=== PATIENT | female | born 1935 | race Caucasian/White ===

== ENCOUNTER 2020-02-12 07:47 | Outpatient (CLI) | payer MEDICARE, MEDICAID, SELFPAY ==
--- NOTE | 2020-02-12 08:01 | US_ITS ---
WS: [id number] Bilateral renal ultrasound, 02/12/2020 Clinical Data: GROSS HEMATURIA Comparison: None. Findings: The right kidney measures 10.0 cm x 4.5 cm x 4.2 cm and the left kidney is 9.9 cm x 4.9 cm x 5.6 cm. There are no cysts, masses or hydronephrosis. The renal cortical margin is normal. No renal calculi a re seen. The abdominal aorta and inferior vena cava show no vascular abnormalities. The bladder was scanned and showed a mass within the bladder adherent to the gallbladder wall. It teri sures 3.13 x 3.58 x 4.28 cm. This could represent an organized hematoma, mass from the bladder wall w hich could be a tumor or organized debris. US/US renal BI with bladder Impression: 1. Probable intraluminal bladder mass and recommend further workup. 2. Negative kidneys.
== END 2020-02-12 07:48 | disposition home or self-care (01) ==
PROVIDERS: PCP Registered Nurse; Visit Provider Registered Nurse
DX: R31.0 Gross hematuria (principal)
CPT/HCPCS: 76770; 76857

== ENCOUNTER 2020-02-17 08:59 | Observation (INO) | payer MEDICARE, MEDICAID, SELFPAY ==
[2020-02-17] VITALS (11 sets, daily range): BP systolic 103–125; BP diastolic 50–68; PULSE 74–98; RESP 16–22; TEMP 36.3–37.1; O2SAT 90–98; BMI 25.4
--- NOTE | 2020-02-17 11:09 | CT_ITS ---
WS: [id number] CT ABDOMEN AND PELVIS WITH CONTRAST HISTORY: GI bleed TECHNIQUE: Imaging performed of the abdomen and pelvis with IV contrast. Single phase imaging of the abdomen. Coronal and sagittal reformats are submitted. All CT scans at [facility] use at least one of these dose optimization techniques: automated exposure control; mA and/or kV adjustment per patient size (includes targeted exams where dose is matched to clinical indication); or iterativ e reconstruction. IV CONTRAST: Visipaque 320; 95 mL IV. Oral contrast: No DLP: 730.05 mGy.cm COMPARISON: 12/01/2006 Lower thorax: Dependent changes and mild atelectasis at the lung bases. Benign granuloma LEFT lower l obe. Heart is normal size. Small hiatal hernia. Liver/biliary system: Normal size with no intrahepatic dilatation. Gallbladder: Very mildly distended gallbladder. Small amount of sludge or stones are layering depende ntly. No adjacent pericholecystic fluid or gallbladder wall thickening. Common bile duct is minimally dilated to 9 mm. Pancreas: Mild diffuse atrophy of the pancreas. Spleen: Normal size spleen. There are several scattered hypodensities within the spleen which are non specific. Adrenal glands: Normal. Right kidney: Mild atrophy. No mass or hydronephrosis. Left kidney: Mild atrophy. No mass or hydronephrosis. Aorta: Moderate atherosclerosis with no aneurysm. Lymphadenopathy: None. Free fluid: None. GI tract: Normal appendix. No GI tract obstruction. There is mild constipation. There are a few scatt ered diverticula. Abdominal wall: Unremarkable abdominal wall. No hernia. Pelvis: Well-distended urinary bladder. There is soft tissue lobulated enhancing mass in the posterio r RIGHT urinary bladder. Lobulated mass measures 7 cm transversely by 3.1 cm anterior posterior. This mass is predominantly to the RIGHT of midline and closely associated with the ureteral orifice but n o obstruction. Small anteverted uterus. There is increased density within the uterus which could be c alcification. This is a poor evaluation for the endometrium. 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 Severe RIGHT hip join t osteoarthritis. Flattening of the normal head of the RIGHT hip with subchondral cystic changes and edema. CT/CT abdomen pelvis w con* [id number] IMPRESSION: 1. Lobulated intraluminal bladder mass measures 7.0 x 3.1 cm. Recommend cystos copy. Transitional neoplasm suspected. 2. No renal mass or obstruction. 3. Atrophic uterus. Poor visualization of the endometrium. 4. Suspect small small stones in the gallbladder. No evidence for acute cholec ystitis.
--- NOTE | 2020-02-17 11:28 | ED_ITS ---
HPI - Female Genitourinary General: Chief complaint: Vaginal Bleeding Stated complaint: VAGINAL BLEED, FALL Time Seen by Provider: 02/17/20 10:46 History of Present Illness: HPI Narrative: 5-year-old female patient with dementia presents to the emergency department with her son. She lives at home with her son, she sustained a fall last night while getting off the commode, her son denied injuries but is wanting her checked out. He reports concern as she has experienced vaginal bleeding. History of godfrey hematuria x2 weeks. Reports blood is with urination, blood is present in pad when she experiences urinary incontinence. He denies blood in stool Recent renal ultrasound revealed left renal mass. CAT scan has been ordered by her primary care physician and appointment is pending. Her son reports that she is experienced increased weakness and is not able to walk or stand very well. He reports patient did not experience head injury or loss of consciousness. She has dementia and does not follow commands. MD elicited complaint: vaginal bleeding, urinary incontinence and other (bleeding with urination) Onset (ago): week(s) (2) Location of symptoms: urethra and vaginal Consistency: progressively worsening Vaginal bleeding: moderate Urinary symptoms: Difficulty Urinating and Hematuria Associated symptoms: Reports abdominal pain and weakness; Deny headache(s) or nausea Review of Systems General: Reports: 10 or more systems reviewed and unremarkable except in HPI and below Const: Reports: fatigue and malaise; Denies: fever(s), chills or diaphoresis Eyes: Denies: blurry vision or eye redness ENMT: Denies: throat pain, dental pain or disequilibrium Card: Denies: chest pain, palpitations or irregular heart rhythm Resp: Denies: dyspnea, productive cough, non-productive cough or wheezing GI: Reports: abdominal pain; Denies: nausea, vomiting or hematemesis : Reports: dribbling, urinary incontinence, hematuria and vaginal bleeding; Denies: difficulty voiding or dysuria Musc: Denies: back pain Skin/Breast: Denies: rash or pruritus Neuro: Reports: difficulty walking, frequent falls and confusion (dementia); Denies: headache(s), weakness in extremities or behavioral changes Psych: Reports: irritability (with dementia) Phill/Lymph: Denies: easy bruising COUNTS INCLUDE 234 BEDS AT THE [facility] ED PFSH: Medical History (Updated 02/17/20 @ 16:50 by Gordon Gallego MD) Dementia Gross hematuria Mass of bladder Social History (Updated 02/17/20 @ 16:51 by Gordon Gallego MD) Smoking and tobacco status: never smoked Alcohol intake: never Household members: children Housing: House Physical Exam Const: COMMON NORMALS: no acute distress, patient oriented x3, healthy appearing and alert GENERAL APPEARANCE: cooperative, comfortable and well hy drated ORIENTATION/CONSCIOUSNESS: Yes awake HENMT: COMMON NORMALS: normocephalic, Normal external nose present and moist oral mucous membranes HEAD & SCALP: normocephalic NOSE: Normal external nose present Eye: COMMON NORMALS: Equal, round and reactive pupils present and EOMs intact bilaterally GENERAL EYE: appearance normal, both eyes and all related struct ures PUPIL: Yes Equal, round and reactive pupils present Neck/C-Spine: COMMON NORMALS: full ROM and no lymphadenopathy GENERAL: Yes normal visual inspection and Yes trachea midline CERVICAL SPINE: Yes cervical ROM normal Lymph: LYMPHATIC: no lymphadenopathy noted Chest: COMMONS NORMALS: normal inspection of the chest Resp: COMMON NORMALS: normal respiratory effort and clear to auscultation bilaterally EFFORT & INSPECTION: Yes able to speak in complete sentences AUSCULTATION: clear to auscultation bilaterally Cardio: COMMON NORMALS: regular rhythm, S1 normal heart sound present, S2 normal heart sound present and Peripheral pulses 2+ throughout RHYTHM: regular rhythm HEART SOUNDS: S1 normal heart sound present and S2 normal heart sound present PERIPHERAL PULSES: Peripheral pulses 2+ throughout GI: COMMON NORMALS: Soft to palpation INSPECTION: Yes normal to inspection AUSCULTATION: Yes normoactive bowel sounds PALPATION: Yes Soft to palpation, Yes Tenderness to palpation present (GI) Details: RLQ and RUQ and Yes Other GI palpation findings present (distended) RECTAL EXAM: heme positive stool : COMMON NORMALS: Yes no CVA tenderness BLADDER/KIDNEY EXAM: Yes no CVA tenderness SPECULUM EXAM - VAGINA: Yes other (Patient noncompliant with pelvic exam, vaginal digitally palpated, no active bleeding appreciated) Back/Pelvis: COMMON NORMALS: no CVA tenderness and thoracic and lumbar spine normal to inspection Extremity: COMMON NORMALS: normal to inspection, full ROM (To all extremities, negative pain to palpation of the extremities, cervical spine, thoracic spine or lumbar spine.) and capillary refill normal GENERAL: Yes normal exam except as noted Neuro: COMMON NORMALS: patient oriented x3 and no focal motor deficits SENSORIUM/ORIENTATION: Yes alert Psych: COMMON NORMALS: mental status grossly normal and speech normal APPEARANCE: Yes grossly normal ATTITUDE: Yes calm ACTIVITY/MOTOR BEHAVIOR: Yes appropriate eye contact and Yes fidgeting SPEECH: Yes normal speech THOUGHT PROCESS: disorganized MEMORY/COGNITION: Yes memory grossly impaired Skin: COMMON NORMALS: no rashes or lesions noted and turgor normal NARRATIVE SKIN EXAM: Negative ecchymosis, negative old bruising noted, skin exam completed due to history of fall, assessing for injury GENERAL SKIN EXAM: no rashes or lesions noted and turgor normal Course ED course: 85-year-old female patient presents to the emergency department with continued falls at home, increased weakness according to the son. Recent ultrasound bladder revealed bladder mass, normal kidneys, transfer of care to Dr. Silver as patient will most likely require admission. Vital Signs: Vital signs: Vital Signs Temperature 97.9 F 02/17/20 17:51 Pulse Rate 90 02/17/20 17:51 Respiratory Rate 18 02/17/20 17:51 Blood Pressure 106/68 02/17/20 17:51 Pulse Oximetry 94 02/17/20 18:15 MDM - Female Lab Data: Labs: Lab Results 02/17/20 02/17/20 02/17/20 Range/Units 11:03 11:45 11:45 WBC 7.9 (4.0-10.0) 10^3/ uL RBC 2.66 L (4.1-5.3) 10^6/u L Hgb 8.3 L (11.5-15.3) g/dL Hct 27.2 L (37.0-47.0) % MCV 102.3 H (81-99) fL MCH 31.2 (28.0-34.0) pg MCHC 30.5 (30.0-36.0) g/dL RDW 13.2 (12.1-15.1) % Plt Count 248 (130-400) 10^3/c mm MPV 9.2 (7.4-10.4) fL Neut % (Auto) 57.9 % Lymph % (Auto) 24.2 % [place] % (Auto) 15.4 % Eos % (Auto) 1.4 % Baso % (Auto) 0.6 % Neut # (Auto) 4.57 (1.8-7.7) 10^3/u L Lymph # (Auto) 1.9 (0.8-4.8) 10^3/u L [place] # (Auto) 1.2 H (0.2-0.9) 10^3/u L Eos # (Auto) 0.1 (0.0-0.8) 10^3/u L Baso # (Auto) 0.1 (0.0-0.1) 10^3/u L Nucleated RBC % (a uto) 0 % Nucleated RBCs # 0.0 /100WBC Sodium (136-145) mmol/L Potassium (3.5-5.1) mmol/L Chloride (98-107) mmol/L Carbon Dioxide (22-29) mmol/L Anion Gap (5-19) BUN (8-23) mg/dL Creatinine (0.5-0.9) mg/dL GFR Calculation Glucose (65-115) mg/dL Calculated Osmolal ity (285-295) mOsm/k g Lactate 0.9 (0.5-2.2) mmol/L Calcium (8.5-10.5) mg/dL Total Bilirubin (0.15-1.2) mg/dL AST (0-32) U/L ALT (0-33) U/L Alkaline Phosphata se (35-105) IU/L Total Protein (6.6-8.7) g/dL Albumin (3.5-5.2) g/dL Globulin (1.3-4.6) g/dL Urine Color Red (Yellow) Urine Appearance Turbid (CLEAR) Urine pH 7 (5-7) Ur Specific Gravit y 1.015 (1.005-1.030) Urine Protein 3+ H (Negative) Urine Glucose (UA) Norm (Normal) Urine Ketones Negative (Negative) Urine Blood 3+ H (Negative) Urine Nitrate Negative (Negative) Urine Bilirubin Neg (Negative) Urine Urobilinogen 1 H (Negative) mg/dL Ur Leukocyte Bre ase Negative (Negative) Urine RBC Too numerous to c nt H (0-2) /hpf Urine WBC None (0-5) /hpf Ur Squamous Epith Cells None (0-5) /hpf Amorphous Sediment Not Reportable Urine Bacteria 3+ H (NONE) /hpf 02/17/20 Range/Units 12:28 WBC (4.0-10.0) 10^3/ uL RBC (4.1-5.3) 10^6/u L Hgb (11.5-15.3) g/dL Hct (37.0-47.0) % MCV (81-99) fL MCH (28.0-34.0) pg MCHC (30.0-36.0) g/dL RDW (12.1-15.1) % Plt Count (130-400) 10^3/c mm MPV (7.4-10.4) fL Neut % (Auto) % Lymph % (Auto) % [place] % (Auto) % Eos % (Auto) % Baso % (Auto) % Neut # (Auto) (1.8-7.7) 10^3/u L Lymph # (Auto) (0.8-4.8) 10^3/u L [place] # (Auto) (0.2-0.9) 10^3/u L Eos # (Auto) (0.0-0.8) 10^3/u L Baso # (Auto) (0.0-0.1) 10^3/u L Nucleated RBC % (a uto) % Nucleated RBCs # /100WBC Sodium 139 (136-145) mmol/L Potassium 4.0 (3.5-5.1) mmol/L Chloride 106 (98-107) mmol/L Carbon Dioxide 23 (22-29) mmol/L Anion Gap 14.0 (5-19) BUN 17 (8-23) mg/dL Creatinine 1.0 H (0.5-0.9) mg/dL GFR Calculation Not Reportable Glucose 96 (65-115) mg/dL Calculated Osmolal ity 289 (285-295) mOsm/k g Lactate (0.5-2.2) mmol/L Calcium 9.0 (8.5-10.5) mg/dL Total Bilirubin 0.5 (0.15-1.2) mg/dL AST 18 (0-32) U/L ALT 9 (0-33) U/L Alkaline Phosphata se 96 (35-105) IU/L Total Protein 6.7 (6.6-8.7) g/dL Albumin 3.9 (3.5-5.2) g/dL Globulin 2.8 (1.3-4.6) g/dL Urine Color (Yellow) Urine Appearance (CLEAR) Urine pH (5-7) Ur Specific Gravit y (1.005-1.030) Urine Protein (Negative) Urine Glucose (UA) (Normal) Urine Ketones (Negative) Urine Blood (Negative) Urine Nitrate (Negative) Urine Bilirubin (Negative) Urine Urobilinogen (Negative) mg/dL Ur Leukocyte Bre ase (Negative) Urine RBC (0-2) /hpf Urine WBC (0-5) /hpf Ur Squamous Epith Cells (0-5) /hpf Amorphous Sediment Urine Bacteria (NONE) /hpf Discharge Plan Discharge Patient Disposition: Placed in Observation Admit Provider: Gordon Gallego Clinical Impression: Gross hematuria, Mass of bladder, Weakness Dementia Qualifiers: Dementia type: unspecified type Dementia behavioral disturbance: without behavioral disturbance Qualified Code(s): F03.90 - Unspecified dementia without behavioral disturbance Condition: Stable Referrals: Monique Aguirre [Primary Care Provider] - Discharge Date/Time: 02/17/20 17:31 Coding Level of Care Code ED Junior Copywriter for Chg Fwd Exam Comprehensive
[2020-02-17 11:48] LABS: Specific Gravity, Urine 1.015 (1.005-1.030); Urine Appearance Turbid (CLEAR); Urine Color Red (Yellow); pH Urine 7 (5-7)
[2020-02-17 11:49] LABS: Add Urine Microscopic? YES; Bilirubin Urine Neg (Negative); Blood Urine 3+ (Negative); Glucose Urine UA Norm (Normal); Ketones Urine Negative (Negative); Leukocyte Esterase Urine Negative (Negative); Nitrate Urine Negative (Negative); Protein Urine 3+ (Negative); Urobilinogen Urine 1 mg/dL (Negative)
--- NOTE | 2020-02-17 11:54 | XRR_ITS ---
PROCEDURE INFORMATION: Exam: XR Chest, 1 View Exam date and time: 02/17/2020 12:15 PM Age: 85 years old Clinical indication: Abdominal pain TECHNIQUE: Imaging protocol: XR of the chest Views: 1 view. COMPARISON: No relevant prior studies available. FINDINGS: Lungs: No pneumonia or pulmonary edema. Prior pulmonary granulomatous disease. Pleural space: No pleural effusion or pneumothorax. Heart/Mediastinum: The cardiac silhouette is not enlarged. The mediastinal contours are normal. Bones/joints: Multilevel disc degeneration in the thoracic spine. Intraperitoneal space: No pneumoperitoneum. XR/XR chest 1V portable [id number] IMPRESSION: No acute abnormality.
[2020-02-17 11:55] LABS: Basophils # 0.1 10^3/uL (0.0-0.1); Basophils % 0.6 %; Eosinophils # 0.1 10^3/uL (0.0-0.8); Eosinophils % 1.4 %; Hematocrit 27.2 % (37.0-47.0); Hemoglobin 8.3 g/dL (11.5-15.3); Lymphocytes # 1.9 10^3/uL (0.8-4.8); Lymphocytes % 24.2 %; Mean Corpuscular HGB Conc 30.5 g/dL (30.0-36.0); Mean Corpuscular Hemoglobin 31.2 pg (28.0-34.0); Mean Corpuscular Volume 102.3 fL (81-99); Mean Platelet Volume 9.2 fL (7.4-10.4); Monocytes # 1.2 10^3/uL (0.2-0.9); Monocytes % 15.4 %; Neutrophils # 4.57 10^3/uL (1.8-7.7); Neutrophils % 57.9 %; Nucleated Red Blood Cells % 0 %; Platelet Count 248 10^3/cmm (130-400); Red Blood Count 2.66 10^6/uL (4.1-5.3); Red Cell Distribution Width 13.2 % (12.1-15.1); White Blood Count 7.9 10^3/uL (4.0-10.0)
[2020-02-17 12:05] LABS: Add Urine Culture? Yes; Bacteria Urine 3+ /hpf
[2020-02-17 12:06] LABS: RBC Urine TOO NUMEROUS TO CNT /hpf (0-2)
[2020-02-17 12:16] LABS: Lactate (Lactic Acid level) 0.9 mmol/L (0.5-2.2)
[2020-02-17 13:14] LABS: Alanine Aminotransferase 9 U/L (0-33); Albumin Level 3.9 g/dL (3.5-5.2); Alkaline Phosphatase 96 IU/L (35-105); Aspartate Amino Transferase 18 U/L (0-32); Blood Urea Nitrogen 17 mg/dL (8-23); Carbon Dioxide 23 mmol/L (22-29); Chloride 106 mmol/L (98-107); Globulin 2.8 g/dL (1.3-4.6); Glucose 96 mg/dL (65-115); Osmolality Calculated 289 mOsm/kg (285-295); Sodium 139 mmol/L (136-145); Total Bilirubin 0.5 mg/dL (0.15-1.2); Total Protein 6.7 g/dL (6.6-8.7)
[2020-02-17] MEDS: haloperidol inj 5 mg/mL INJ 1 mL 2 MG IVP (14:20)
[2020-02-17] MEDS: iodixanol 320 mg/mL 100mL Btl IV (14:38)
--- NOTE | 2020-02-17 16:43 | P.HP_ITS ---
Providers/Chief Complaint Primary Care Provider: Monique Aguirre Chief Complaint: VAGINAL BLEED, FALL History of Present Illness Tessy GAVIRIA is a 85 year old female with past medical history of advanced dementia, weakness who was brought into the ER today by her son Francois. Patient lives with her son Mr. Gasca who is also her DPOAE. Most of the history taken through the family including Mr. Parrish, Mr. Gasca on phone [phone], Ms. Villela on [phone]. As per the family patient has been getting more and more weak for last couple of weeks to 1 month along with having multiple episodes of bloody urine. She has not been having any fever, nausea, vomiting, headache. She is not been having any diarrhea. They are not aware of her having any fevers. They state that patient has been getting more weak recently and has had Frequent falls in the last 1 week. Patient was brought into the ER for the same reasons and the evaluation over here showed blood work having hemoglobin of 8.3, white count of 7.9, platelet count of 248, sodium of 139, creatinine of 1, BUN of 17, AST/ALT of 18/9, UA concerning with 3+ protein, 3+ blood, negative nitrite, negative leuk esterase with CT abdomen pelvis showing lobulated intraluminal bladder mass measuring 7 to 3.1 cm suspected high for transitional neoplasm. Given the advanced age, advanced dementia, poor baseline family have decided not to pursue the bladder mass at present. They are aware that this could mean that patient has cancer and can eventually even cause her to . They state for now they would want to make sure that patient is comfortable and want to want to transition her to go hospice. Patient would be going hospice with her daughter Ms. Villela who lives in [place] and is driving in from there tomorrow for further care. Patient is being admitted to the hospital to assist in the above said goals of care as patient currently lives with her son Campos who is also physically disabled. Review of Systems General: Reports: ROS unobtainable due to mental status Medications/Allergies Home Medications Medication Instructions Recorded Confirmed Last Taken Type doxepin 50 mg PO BEDTIME 02/17/20 02/17/20 Unknown History duloxetine 30 mg PO DAILY 02/17/20 02/17/20 Unknown History gabapentin 600 mg PO TID 02/17/20 02/17/20 Unknown History memantine 28 mg PO DAILY 02/17/20 02/17/20 Unknown History omeprazole 40 mg PO DAILY 02/17/20 02/17/20 Unknown History quetiapine 200 mg PO BID 02/17/20 02/17/20 Unknown History rivastigmine tartrate 3 mg PO BID 02/17/20 02/17/20 Unknown History sertraline 50 mg PO DAILY 02/17/20 02/17/20 Unknown History trazodone 200 mg PO BEDTIME 02/17/20 02/17/20 Unknown History Allergies Allergy/AdvReac Type Severity Reaction Status Date / Time No Known Allergies Allergy Verified 02/17/20 09:19 PFSH Acute PFSH: Medical History (Updated 02/17/20 @ 16:50 by Gordon Gallego MD) Dementia Gross hematuria Mass of bladder Social History (Updated 02/17/20 @ 16:51 by Gordon Gallego MD) Smoking and tobacco status: never smoked Alcohol intake: never Household members: children Housing: House Vitals/I&O/Wt Last Vital Signs Temp 97.4 F L 02/17/20 09:16 Pulse 78 02/17/20 15:48 Resp 18 02/17/20 15:48 BP 125/64 02/17/20 15:48 Pulse Ox 94 02/17/20 15:48 Weight last 48 hrs Weight 61.235 kg Physical Exam Narrative: EXAM NARRATIVE: General: No acute distress, AO x 1-2 which is the baseline, confused, lying comfortably in bed HEENT: PERRLA, pupils bilaterally equal and reactive Chest: Normal vesicular breath sounds, no added sounds, equal good air entry bilaterally CVS: S1-S2 regular, no murmurs, no tachycardia, no gallops, no rubs Abdomen: Soft, mild tenderness in lower abdomen, no organomegaly, bowel sounds present Neuro: No focal deficits, fairly weak frail lady Data : 02/17/20 11:45 02/17/20 12:28 A&P Assessment and plan (1) Hospice care: Status: Acute (2) Gross hematuria: Status: Acute (3) Mass of bladder: Status: Acute (4) Weakness: Status: Acute (5) Dementia: Status: Acute Qualifiers: Dementia behavioral disturbance: without behavioral disturbance Dementia type: unspecified type Qualified Code(s): F03.90 - Unspecified dementia without behavioral disturbance Additional A&P Information As per the discussion with patient's family and son/DPOAE Mr. 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 Son states that their goals going further is to make sure that the mother is comfortable and would want to transition her over to hospice services. Patient is to live at home with her daughter Ms. Villela at [place] with hospice services. Will consult care coordination for transition to hospice services in [place]. Morphine 1 mg IV every 2 hour as needed, Haldol 1 mg IM every 4 hours as needed, atropine sublingual drops for excessive secretion as needed for comfort measures. Advanced dementia: Continue home medications for dementia. Patient is on many medications for her dementia which is also playing a part of polypharmacy so we will adjust some dosages. At present patient is doxepin 50 mg at bedtime which we will continue, duloxetine 30 mg daily which we will continue, gabapentin 600 mg 3 times daily which will decrease to gabapentin 300 mg 3 times daily, Namenda 28 mg daily which we will continue, Seroquel 200 mg twice daily which we will stop, trazodone 200 mg oral at bedtime which will decrease 200 mg at bedtime and sertraline 50 mg oral daily which we will continue. We will admit patient under observation to achieve the goals of care with patient's family and D POA of hospice services. Attestations Medical Necessity Statement*: Estimate admission for less than 2 midnights for transition over to hospice services because of advanced age, advanced dementia, bladder mass with high suspicion of neoplasm. Time Spent in Patient Care: Greater than 35 minutes (>than 50% of time spent in counselling and/or direct pt care on unit) . Coding Level of Care Code Acute Wood Sash And Frame Carpenter for g Fwd Diagnoses Hospice care Z51.5 Gross hematuria R31.0 Mass of bladder N32.89 Weakness R53.1 Dementia F03.90 Dementia behavioral disturbance: without behavioral disturbance Dementia type: unspecified type
[2020-02-17] MEDS: D5-NS 0.45% + KCL 20 mEq 20 MEQ/1,000 ML BAG 40 MEQ IV (17:52)
[2020-02-17] MEDS: doxepin 50 mg Capsule PO (20:30)
[2020-02-17] MEDS: trazodone 100 mg Tablet PO (20:30)
[2020-02-17] MEDS: gabapentin 300 mg Capsule PO (20:30)
[2020-02-18 01:40] VITALS: BP 109/64; PULSE 71; RESP 19; TEMP 37.1; O2SAT 97
[2020-02-18] MEDS: haloperidol inj 5 mg/mL INJ 1 mL 1 MG IM ×2 (03:55→11:18)
--- NOTE | 2020-02-18 03:58 | PC.NURSE ---
Pt became very agitated with PSA attempting to get out of bed. When attempting to redirect, the patient began to yell and started swinging her arms at staff. This nurse attempted to calm the patient without success. Patient was given ordered dose of Haldol 1MG IM. Pt is now resting peacefully with respirations WNL.
[2020-02-18 04:00] VITALS: BP 112/70; PULSE 67; RESP 17; TEMP 36.6; O2SAT 97
[2020-02-18 08:00] VITALS: BP 98/62; PULSE 90; RESP 18; TEMP 36.8; O2SAT 95
[2020-02-18] MEDS: sertraline 50 mg Tablet PO (09:34)
[2020-02-18] MEDS: duloxetine 30 mg Capsule PO (09:34)
[2020-02-18] MEDS: pantoprazole DR 40 mg Tablet PO (09:34)
[2020-02-18] MEDS: gabapentin 300 mg Capsule PO (09:34)
--- NOTE | 2020-02-18 10:46 | PC.CHAP ---
Pastoral Care Encounter/Spiritual Assessment Type of Contact [] Declined salt manager visit [] Patient/Family/Request visit [] Outpatient visit [] Follow-up visit [] Physician referral [] Code/Alert [] Routine visit [] Staff referral [] Actively dying [] Patient sleeping [] Family support [] [] Out of room [] Palliative care [] [] Receiving care in room [] Pre-surgical visit [] Trauma [] Long length of stay [] ICU visit [x] Other: nurse with her not able to communicate Relational/Emotional Strength [] Patient feels connected with others/family/visitors/staff [] Distress [] Loneliness/isolation [] Abandonment Spirituality of Patient [] Person of [place] [] Attends Anabaptism of their [place] [] Believes in Prayer [] Reads Bible or Mosque materials [] There are Spiritual issues to be addressed Melangeur Operator Interventions [] Prayer [] Active listening [] Non-anxious presence [] Spiritual/emotional support [] Crisis/trauma care [] Spiritual counseling [] Bereavement support [] Provided bereavement packet [] Provided Bible/devotional materials [] Provided toy/stuffed animal, coloring book to patient or family member [] Provided Communion [] Anointing/[place] [] Salvation [] Completed spiritual assessment [] Other: Impact on Illness or Injury [] Angry [] Fearful [] Anxious [] Often cries [] Exhaustion [] Unable to work [] Unable to attend bahai [] Unable to walk/stand [] Unable to read [] Unable to drive [] Unable to eat/drink [] Unable to sleep [] Unable to be with family [] Patient intubated [] Other: Summary nurse with her not able to communicate Time spent with patient 5 mins
[2020-02-18 12:00] VITALS: BP 97/54; PULSE 83; RESP 18; TEMP 36.8
--- NOTE | 2020-02-18 12:17 | P.PN_ITS ---
Subjective Subjective: Interval history: Patient has remained comfortable overnight. She did have occasional episodes of confusion overnight. Today morning on examination lying comfortably in bed. No reported events overnight other than already mentioned. Patient has remained hemodynamically stable. Vitals/I&O/Wt Last Vital Signs Temp 98.2 F 02/18/20 12:00 Pulse 83 02/18/20 12:00 Resp 18 02/18/20 12:00 BP 97/54 02/18/20 12:00 Pulse Ox 95 02/18/20 08:00 Weight last 48 hrs Weight 61.235 kg Physical Exam Narrative: EXAM NARRATIVE: General: No acute distress, AO x 1-2 which is the baseline, confused, lying comfortably in bed HEENT: PERRLA, pupils bilaterally equal and reactive Chest: Normal vesicular breath sounds, no added sounds, equal good air entry bilaterally CVS: S1-S2 regular, no murmurs, no tachycardia, no gallops, no rubs Abdomen: Soft, mild tenderness in lower abdomen, no organomegaly, bowel sounds present Neuro: No focal deficits, fairly weak frail lady Data : 02/17/20 11:45 02/17/20 12:28 Micro: Microbiology 02/17/20 11:03 Urine Culture - Preliminary Urine,Clean Catch A&P Assessment and plan (1) Hospice care: Status: Acute (2) Gross hematuria: Status: Acute (3) Mass of bladder: Status: Acute (4) Weakness: Status: Acute (5) Dementia: Status: Acute Qualifiers: Dementia behavioral disturbance: without behavioral disturbance Dementia type: unspecified type Qualified Code(s): F03.90 - Unspecified dementia without behavioral disturbance Additional A&P Information As per the discussion with patient's family and son/DPOAE Mr. 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 Son states that their goals going further is to make sure that the mother is comfortable and would want to transition her over to hospice services. Patient is to live at home with her daughter Ms. Villela at [place] with hospice services. Care coordination working with hospice services in [place] for safe discharge planning. For now continue with morphine 1 mg IV every 2 hour as needed, Haldol 1 mg IM every 4 hours as needed, atropine sublingual drops for excessive secretion as needed for comfort measures. Advanced dementia: Continue home medications for dementia. Patient is on many medications for her dementia which is also playing a part of polypharmacy so we will adjust some dosages. At present patient is doxepin 50 mg at bedtime which we will continue, duloxetine 30 mg daily which we will continue, gabapentin 600 mg 3 times daily which will decrease to gabapentin 300 mg 3 times daily, Namenda 28 mg daily which we will continue, Seroquel 200 mg twice daily which we will stop, trazodone 200 mg oral at bedtime which will decrease 200 mg at bedtime and sertraline 50 mg oral daily which we will continue. Attestations Medical Necessity Statement*: Needs further hospitalization till safe discharge planning while transitioning to hospice is arranged. Time Spent in Patient Care: Greater than 35 minutes (>than 50% of time spent in counselling and/or direct pt care on unit) . Coding Level of Care Code Acute Ice Rink Attendant for Fifi Lott Diagnoses Hospice care Z51.5 Gross hematuria R31.0 Mass of bladder N32.89 Weakness R53.1 Dementia F03.90 Dementia behavioral disturbance: without behavioral disturbance Dementia type: unspecified type
--- NOTE | 2020-02-18 12:57 | P.DS_ITS ---
Discharge Providers Date of Admission: 02/17/20 16:09 Date of Discharge: February 18, 2020 Attending Provider at Admission: Gordon Gallego MD Attending Provider at Discharge: Gordon Gallego MD Primary Care Provider: Monique Aguirre Diagnoses at Discharge Discharge Diagnosis (1) Hospice care: Status: Acute (2) Gross hematuria: Status: Acute (3) Mass of bladder: Status: Acute (4) Weakness: Status: Acute (5) Dementia: Status: Acute Qualifiers: Dementia behavioral disturbance: without behavioral disturbance Dementia type: unspecified type Qualified Code(s): F03.90 - Unspecified dementia without behavioral disturbance Reason for Visit Reason for Visit: VAGINAL BLEED, FALL Hospital Course Discharge Summary: Admitted yesterday to set of hospice in view of advanced age, advanced dementia and new diagnosis of mass in bladder which is highly suspicion of neoplasm as per request of patient's DPOA and other family members. Please consider my progress note from today as my discharge summary as well. Physical Exam Narrative: EXAM NARRATIVE: General: No acute distress, AO x 1-2 which is the baseline, confused, lying comfortably in bed HEENT: PERRLA, pupils bilaterally equal and reactive Chest: Normal vesicular breath sounds, no added sounds, equal good air entry bilaterally CVS: S1-S2 regular, no murmurs, no tachycardia, no gallops, no rubs Abdomen: Soft, mild tenderness in lower abdomen, no organomegaly, bowel sounds present Neuro: No focal deficits, fairly weak frail lady Discharge Data Data Completed and Pending: Completed Studies During Hospitalization Category Date Time Status CT abdomen pelvis w con* [id number] Urge nt Cat Scan 02/17/20 11:09 Completed XR chest 1V macario ble [id number] Stat Exams 02/17/20 11:54 Completed Pending at discharge Category Date Time Status Urine Culture Sta t Lab 02/17/20 11:03 Results Labs from last 24 hours 02/17/20 12:28 Sodium 139 Potassium 4.0 Chloride 106 Carbon Dioxide 23 Anion Gap 14.0 BUN 17 Creatinine 1.0 H GFR Calculation Not Reportable Glucose 96 Calculated Osmolal ity 289 Calcium 9.0 Total Bilirubin 0.5 AST 18 ALT 9 Alkaline Phosphata se 96 Total Protein 6.7 Albumin 3.9 Globulin 2.8 Vitals: Last Vital Signs Temp 98.2 F 02/18/20 12:00 Pulse 83 02/18/20 12:00 Resp 18 02/18/20 12:00 BP 97/54 02/18/20 12:00 Pulse Ox 95 02/18/20 08:00 Discharge Plan Discharge Patient Disposition: Hospice - Home Condition: Stable Prescriptions: Continued doxepin 50 mg capsule 50 mg PO BEDTIME RF: 0 omeprazole 40 mg capsule,delayed release(DR/EC) 40 mg PO DAILY RF: 0 sertraline 50 mg tablet 50 mg PO DAILY RF: 0 rivastigmine tartrate 3 mg capsule 3 mg PO BID RF: 0 duloxetine 30 mg capsule,delayed release(DR/EC) 30 mg PO DAILY RF: 0 memantine 28 mg capsule,sprinkle,ER 24hr 28 mg PO DAILY RF: 0 Changed gabapentin 600 mg tablet 300 mg PO TID Qty: 0 RF: 0 quetiapine 200 mg tablet 100 mg PO BID Qty: 0 RF: 0 trazodone 100 mg tablet 100 mg PO BEDTIME Qty: 0 RF: 0 Discharge Orders: Discharge Order (Routine); Ordered 02/18/20 Ordered By: Gordon Gallego Referrals: Monique Aguirre [Primary Care Provider] - Discharge Diet: Advance as tolerated Discharge Activity: Resume usual activity Discharge Attestations Time Spent in Discharge Care*: greater than 30 min Specific Discharge Activities: Specific discharge activities: educating and/or supporting family/caregiver, discussing with director of casework/social workers/dc planners, documenting/other paperwork and evaluating patient/reviewing data Status at Discharge: Cognitive status at discharge: moderately impaired cognition , Behavioral status at discharge: cooperative , Functional status at discharge: other assisted ambulation Overall status at discharge: patient is back to baseline Quality Metrics Clinical Quality Measures During this hospital stay, did patient experience: None Coding Level of Care Code Acute Robot Technician for Chg Fwd Diagnoses Hospice care Z51.5 Gross hematuria R31.0 Mass of bladder N32.89 Weakness R53.1 Dementia F03.90 Dementia behavioral disturbance: without behavioral disturbance Dementia type: unspecified type
--- NOTE | 2020-02-18 14:25 | PC.NURSE ---
IV Dc'd cath intact,bleeding controlled with 2x2 and coban, DC instructions given to son and daughter, voiced full understanding,patient to main entrance via wheelchair to private vehicle with zero difficulties
[2020-02-18 15:00] VITALS: BP 97/54; PULSE 83; RESP 18; TEMP 36.8
== END 2020-02-18 14:25 | disposition hospice, home (50) ==
LOC: ER 17:02 → MEDSURG 17:22
PROVIDERS: Nurse Practitioner Family; Admitting Provider Student in an Organized Health Care Education/Training Program; PCP Registered Nurse; Visit Provider Student in an Organized Health Care Education/Training Program
DX: Z51.5 Encounter for palliative care (principal); R31.0 Gross hematuria; N32.89 Other specified disorders of bladder; R53.1 Weakness; F03.90 Unspecified dementia, unspecified severity, without behavioral disturbance, psychotic disturbance, mood disturbance, and anxiety
CPT/HCPCS: 12345; 36415; 71045; 74177; 80053; 81001; 83605; 85025; 87086; 96372; 96374; 99283; 99285; G0378; J1630; Q9967